=== PATIENT | male | born 1980 | race Caucasian/White ===

== ENCOUNTER 2016-03-24 15:29 | Emergency (ER) | payer SELFPAY ==
[~2016-03-24] VITALS: Ht 180.3 cm; Wt 79.4 kg
[2016-03-24 15:53] VITALS: BP 123/75
== END 2016-03-24 20:20 | disposition left against medical advice (07) ==
LOC: ER 15:33
DX: M79.651 Pain in right thigh (principal); Z53.21 Procedure and treatment not carried out due to patient leaving prior to being seen by health care provider
CPT/HCPCS: 93971

== ENCOUNTER 2016-03-26 14:42 | Inpatient (IN) | payer SELFPAY ==
[~2016-03-26] VITALS: Ht 180.3 cm; Wt 76.8 kg
[2016-03-26] MEDS ORDERED: VANCOMYCIN 1GM/250ML D5W 250 ML IV ONE ×2 (17:15→19:37)
[2016-03-26] MEDS ORDERED: cefTRIAXone 1GM/50ML D5W 50 ML IV ONE (17:15)
[2016-03-26 18:03] LABS: Basophils # (auto) 0 uL; Basophils % (auto) 0.3 % (0.0-2.0); Eosinophils # (auto) 0 uL; Hematocrit 42.6 % (41.0-53.0); Hemoglobin 14.4 g/dL (13.5-17.5); Lymphocytes # (auto) 1.3 uL; Lymphocytes % (auto) 7.1 % (10.0-50.0); Mean Corpuscular Hemoglobin 32.6 pg (28.0-32.0); Mean Corpuscular Hgb Conc. 33.9 g/dL (32.0-36.0); Mean Corpuscular Volume 96.3 fL (80.0-100.0); Mean Platelet Volume 8.6 fL (7.4-10.4); Monocytes % (auto) 5.9 % (0.0-12.0); Neutrophils # (auto) 15.4 uL; Neutrophils % (auto) 86.7 % (37.0-80.0); Platelet Count (auto) 280 10^3/uL (140-450); White Blood Cell 17.8 10^3/uL (4.4-10.8)
[2016-03-26 18:04] LABS: BUN/Creatinine Ratio 10.2; Calcium 8.6 mg/dL (8.5-10.1); Potassium 3.9 mmol/L (3.5-5.1)
[2016-03-26 18:07] LABS: Bilirubin, Total 0.8 mg/dL (0.2-1.0); Total Protein 7.6 g/dL (6.4-8.2)
[2016-03-26] MEDS ORDERED: SODIUM CHLORIDE 0.9% 1,000 ML IV SCH (18:09)
[2016-03-26] MEDS ORDERED: PROMETHAZINE HCL 25 MG/ML 1ML IV PRN (18:15)
[2016-03-26] MEDS ORDERED: HYDROcodone-ACET 5/325MG TAB PO PRN (18:15)
[2016-03-26] MEDS ORDERED: ACETAMINOPHEN 500 MG TAB PO PRN (18:15)
[2016-03-26] MEDS ORDERED: LORazepam 0.5 MG TAB PO PRN (18:15)
[2016-03-26] MEDS ORDERED: LACTULOSE 20Gm/30ML SOLN PO PRN (18:15)
[2016-03-26] MEDS ORDERED: CLINDAMYCIN 900MG IV 50 ML IV ONE (18:15)
[2016-03-26] MEDS ORDERED: MORPHINE SULF INJ 2 MG/ML SYRINGE 1ML IV PRN ×2 (18:15→18:45)
[2016-03-26] MEDS ORDERED: TEMAZEPAM 15 MG CAP PO PRN (18:15)
[2016-03-26] MEDS ORDERED: ENOXAPARIN SOD 40 MG/0.4 ML SYRINGE SC SCH (18:19)
[2016-03-26] MEDS ORDERED: NITROGLYCERIN 0.4 MG SL TAB SL PRN (18:45)
[2016-03-26 18:59] LABS: Prothrombin Time 12.3 sec (9.37-12.3)
[2016-03-26 19:06] LABS: INR 1.19 (0.9-1.15)
[2016-03-26] MEDS ORDERED: ACETAMINOPHEN 500 MG TAB PO ONE (19:30)
[2016-03-26 21:57] VITALS: BP 108/59
[2016-03-26 22:00] VITALS: BP 108/59
[2016-03-26] MEDS ORDERED: CLINDAMYCIN 600MG IV 50 ML IV SCH (22:00)
[2016-03-27] MEDS ORDERED: CLINDAMYCIN 600MG IV 50 ML IV SCH (02:00)
[2016-03-27] MEDS ORDERED: MORPHINE SULF INJ 2 MG/ML SYRINGE 1ML IV PRN (02:45)
[2016-03-27] MEDS ORDERED: LACTULOSE 20Gm/30ML SOLN PO PRN (02:45)
[2016-03-27] MEDS ORDERED: NITROGLYCERIN 0.4 MG SL TAB SL PRN (02:45)
[2016-03-27] MEDS ORDERED: PROMETHAZINE HCL 25 MG/ML 1ML IV PRN (02:45)
[2016-03-27] MEDS ORDERED: ACETAMINOPHEN 500 MG TAB PO PRN (02:45)
[2016-03-27] MEDS: SODIUM CHLORIDE 0.9% 1,000 ML IV SCH ×3 (02:53→22:37)
[2016-03-27 05:34] LABS: Basophils # (auto) 0 uL; Basophils % (auto) 0.2 % (0.0-2.0); Eosinophils # (auto) 0 uL; Eosinophils % (auto) 0.2 % (0.0-7.0); Hematocrit 40.7 % (41.0-53.0); Hemoglobin 13.8 g/dL (13.5-17.5); Lymphocytes # (auto) 1.3 uL; Lymphocytes % (auto) 6.8 % (10.0-50.0); Mean Corpuscular Hemoglobin 32.7 pg (28.0-32.0); Mean Corpuscular Hgb Conc. 33.8 g/dL (32.0-36.0); Mean Corpuscular Volume 96.5 fL (80.0-100.0); Mean Platelet Volume 8.3 fL (7.4-10.4); Monocytes # (auto) 1.6 uL; Monocytes % (auto) 8.3 % (0.0-12.0); Neutrophils # (auto) 15.9 uL; Neutrophils % (auto) 84.5 % (37.0-80.0); Platelet Count (auto) 280 10^3/uL (140-450); Red Cell Distribution Width 13.4 % (11.6-16.0); White Blood Cell 18.8 10^3/uL (4.4-10.8)
[2016-03-27 05:51] LABS: Albumin 2.7 g/dL (3.4-5.0); BUN/Creatinine Ratio 12.2; Bilirubin, Total 0.6 mg/dL (0.2-1.0); Calcium 8.5 mg/dL (8.5-10.1); Potassium 3.7 mmol/L (3.5-5.1); Total Protein 7.2 g/dL (6.4-8.2)
[2016-03-27 05:54] VITALS: BP 122/78
[2016-03-27 08:00] VITALS: BP 114/66
[2016-03-27] MEDS: MORPHINE SULF INJ 2 MG/ML SYRINGE 1ML IV PRN ×3 (08:38→17:57)
[2016-03-27] MEDS: cefTRIAXone 1GM/50ML D5W 50 ML IV SCH (08:39)
[2016-03-27] MEDS ORDERED: cefTRIAXone 1GM/50ML D5W 50 ML IV SCH (09:00)
[2016-03-27] MEDS: ENOXAPARIN SOD 40 MG/0.4 ML SYRINGE SC SCH (10:00)
[2016-03-27] MEDS: CLINDAMYCIN 600MG IV 50 ML IV SCH ×2 (10:07→17:57)
[2016-03-27] MEDS: HYDROcodone-ACET 5/325MG TAB PO PRN ×2 (10:11→19:37)
[2016-03-27 11:42] LABS: Urine RBC None Seen /hpf (0 - 3)
[2016-03-27 11:47] VITALS: BP 114/66
[2016-03-27 12:03] LABS: Urine Bilirubin Negative (Negative); Urine Blood Negative /uL (Negative); Urine Color Yellow (Yellow); Urine Glucose Normal (Normal); Urine Ketone Negative (Negative); Urine Nitrite Negative (Negative); Urine pH 7.5 (5.0-8.0)
[2016-03-27 13:00] VITALS: BP 105/49
[2016-03-27 17:00] VITALS: BP 121/74
[2016-03-27 22:00] VITALS: BP 107/59
[2016-03-28] MEDS: MORPHINE SULF INJ 2 MG/ML SYRINGE 1ML IV PRN ×5 (00:09→22:07)
[2016-03-28] MEDS: CLINDAMYCIN 600MG IV 50 ML IV SCH ×3 (01:29→17:40)
[2016-03-28] MEDS: HYDROcodone-ACET 5/325MG TAB PO PRN ×4 (02:36→23:13)
[2016-03-28 05:30] VITALS: BP 97/66
[2016-03-28] MEDS: cefTRIAXone 1GM/50ML D5W 50 ML IV SCH (08:27)
[2016-03-28] MEDS: ENOXAPARIN SOD 40 MG/0.4 ML SYRINGE SC SCH (08:53)
[2016-03-28 09:00] VITALS: BP 102/68
[2016-03-28 09:06] LABS: Basophils # (auto) 0 uL; Eosinophils # (auto) 0.1 uL; Eosinophils % (auto) 0.4 % (0.0-7.0); Hemoglobin 12.5 g/dL (13.5-17.5); Lymphocytes # (auto) 0.9 uL; Lymphocytes % (auto) 5.3 % (10.0-50.0); Mean Corpuscular Hemoglobin 31.9 pg (28.0-32.0); Mean Corpuscular Hgb Conc. 32.9 g/dL (32.0-36.0); Mean Corpuscular Volume 96.9 fL (80.0-100.0); Mean Platelet Volume 7.8 fL (7.4-10.4); Monocytes # (auto) 1.2 uL; Monocytes % (auto) 7.1 % (0.0-12.0); Neutrophils # (auto) 14.6 uL; Neutrophils % (auto) 87.2 % (37.0-80.0); Platelet Count (auto) 297 10^3/uL (140-450); Red Cell Distribution Width 13.4 % (11.6-16.0); White Blood Cell 16.8 10^3/uL (4.4-10.8)
[2016-03-28 09:54] LABS: BUN/Creatinine Ratio 9.1; Calcium 8.6 mg/dL (8.5-10.1); Magnesium 2.3 mg/dL (1.6-2.6); Potassium 3.6 mmol/L (3.5-5.1)
[2016-03-28] MEDS: SODIUM CHLORIDE 0.9% 1,000 ML IV SCH ×2 (10:36→19:49)
[2016-03-28 13:00] VITALS: BP 125/69
[2016-03-28 17:00] VITALS: BP 112/59
[2016-03-28 22:00] VITALS: BP 105/60
[2016-03-29] MEDS: CLINDAMYCIN 600MG IV 50 ML IV SCH ×3 (02:29→19:03)
[2016-03-29] MEDS: MORPHINE SULF INJ 2 MG/ML SYRINGE 1ML IV PRN ×5 (03:07→23:53)
[2016-03-29] MEDS: SODIUM CHLORIDE 0.9% 1,000 ML IV SCH ×2 (04:54→21:34)
[2016-03-29 05:00] VITALS: BP 107/61
[2016-03-29] MEDS: HYDROcodone-ACET 5/325MG TAB PO PRN ×2 (08:47→19:21)
[2016-03-29] MEDS: cefTRIAXone 1GM/50ML D5W 50 ML IV SCH (08:48)
[2016-03-29 09:00] VITALS: BP 115/69
[2016-03-29 09:06] LABS: Basophils # (auto) 0 uL; Basophils % (auto) 0.2 % (0.0-2.0); Eosinophils # (auto) 0.1 uL; Eosinophils % (auto) 0.8 % (0.0-7.0); Hemoglobin 12.5 g/dL (13.5-17.5); Lymphocytes % (auto) 5.7 % (10.0-50.0); Mean Corpuscular Volume 97.1 fL (80.0-100.0); Mean Platelet Volume 8.3 fL (7.4-10.4); Monocytes % (auto) 5.9 % (0.0-12.0); Neutrophils # (auto) 14.6 uL; Neutrophils % (auto) 87.4 % (37.0-80.0); Platelet Count (auto) 338 10^3/uL (140-450); Red Cell Distribution Width 13.5 % (11.6-16.0); White Blood Cell 16.7 10^3/uL (4.4-10.8)
[2016-03-29] MEDS: ENOXAPARIN SOD 40 MG/0.4 ML SYRINGE SC SCH (10:00)
[2016-03-29 13:00] VITALS: BP 119/72
[2016-03-29 17:00] VITALS: BP 115/58
[2016-03-29 20:00] VITALS: BP 105/59
[2016-03-29 22:00] VITALS: BP 105/59
[2016-03-30] MEDS: SODIUM CHLORIDE 0.9% 1,000 ML IV SCH ×3 (00:45→21:56)
[2016-03-30] MEDS: CLINDAMYCIN 600MG IV 50 ML IV SCH ×3 (02:16→17:33)
[2016-03-30 05:00] VITALS: BP 103/65
[2016-03-30] MEDS: MORPHINE SULF INJ 2 MG/ML SYRINGE 1ML IV PRN ×4 (05:09→21:56)
[2016-03-30] MEDS: HYDROcodone-ACET 5/325MG TAB PO PRN ×2 (07:46→19:11)
[2016-03-30 08:32] LABS: Basophils # (auto) 0 uL; Basophils % (auto) 0.2 % (0.0-2.0); Eosinophils # (auto) 0.2 uL; Eosinophils % (auto) 1.6 % (0.0-7.0); Hematocrit 39.2 % (41.0-53.0); Hemoglobin 12.7 g/dL (13.5-17.5); Lymphocytes # (auto) 1.1 uL; Lymphocytes % (auto) 7.8 % (10.0-50.0); Mean Corpuscular Hemoglobin 31.5 pg (28.0-32.0); Mean Corpuscular Hgb Conc. 32.4 g/dL (32.0-36.0); Mean Corpuscular Volume 97.4 fL (80.0-100.0); Monocytes % (auto) 7.1 % (0.0-12.0); Neutrophils # (auto) 11.6 uL; Neutrophils % (auto) 83.3 % (37.0-80.0); Platelet Count (auto) 399 10^3/uL (140-450); Red Cell Distribution Width 13.8 % (11.6-16.0); White Blood Cell 13.9 10^3/uL (4.4-10.8)
[2016-03-30 08:44] LABS: BUN/Creatinine Ratio 12.6; Calcium 8.4 mg/dL (8.5-10.1); Potassium 3.6 mmol/L (3.5-5.1)
[2016-03-30] MEDS: cefTRIAXone 1GM/50ML D5W 50 ML IV SCH (09:05)
[2016-03-30] MEDS: ENOXAPARIN SOD 40 MG/0.4 ML SYRINGE SC SCH (09:37)
[2016-03-30 09:53] VITALS: BP 112/62
[2016-03-30] MEDS ORDERED: GADOPENTETATE DIMEGLUMINE (10MMOL/20 ML) VIAL IV ONE (11:39)
[2016-03-30 13:42] VITALS: BP 102/68
[2016-03-30 21:54] VITALS: BP 110/70
[2016-03-30] MEDS: TEMAZEPAM 15 MG CAP PO PRN (21:56)
[2016-03-31] MEDS: HYDROcodone-ACET 5/325MG TAB PO PRN ×3 (01:21→20:11)
[2016-03-31] MEDS: SODIUM CHLORIDE 0.9% 1,000 ML IV SCH ×2 (01:21→13:16)
[2016-03-31] MEDS: CLINDAMYCIN 600MG IV 50 ML IV SCH ×3 (01:21→17:43)
[2016-03-31 05:00] VITALS: BP 106/65
[2016-03-31] MEDS: MORPHINE SULF INJ 2 MG/ML SYRINGE 1ML IV PRN ×3 (07:30→18:41)
[2016-03-31 08:00] VITALS: BP 111/55
[2016-03-31] MEDS: ENOXAPARIN SOD 40 MG/0.4 ML SYRINGE SC SCH (10:00)
[2016-03-31] MEDS: cefTRIAXone 1GM/50ML D5W 50 ML IV SCH (10:21)
[2016-03-31 12:00] VITALS: BP 112/64
[2016-03-31 12:28] LABS: Basophils # (auto) 0.1 uL; Basophils % (auto) 0.5 % (0.0-2.0); Eosinophils # (auto) 0.4 uL; Eosinophils % (auto) 3.1 % (0.0-7.0); Hematocrit 39.7 % (41.0-53.0); Hemoglobin 12.6 g/dL (13.5-17.5); Lymphocytes # (auto) 1.4 uL; Lymphocytes % (auto) 12.6 % (10.0-50.0); Mean Corpuscular Hemoglobin 31.4 pg (28.0-32.0); Mean Corpuscular Hgb Conc. 31.9 g/dL (32.0-36.0); Mean Corpuscular Volume 98.5 fL (80.0-100.0); Mean Platelet Volume 8.1 fL (7.4-10.4); Monocytes # (auto) 0.7 uL; Monocytes % (auto) 6.2 % (0.0-12.0); Neutrophils # (auto) 8.9 uL; Neutrophils % (auto) 77.6 % (37.0-80.0); Platelet Count (auto) 512 10^3/uL (140-450); White Blood Cell 11.4 10^3/uL (4.4-10.8)
[2016-03-31] MEDS: LORazepam 0.5 MG TAB PO PRN (13:55)
[2016-03-31 17:00] VITALS: BP 117/72
[2016-03-31 20:00] VITALS: BP 100/61
[2016-03-31] MEDS: TEMAZEPAM 15 MG CAP PO PRN (21:21)
[2016-03-31 22:00] VITALS: BP 100/61
[2016-04-01] MEDS: MORPHINE SULF INJ 2 MG/ML SYRINGE 1ML IV PRN ×5 (01:07→20:18)
[2016-04-01] MEDS: CLINDAMYCIN 600MG IV 50 ML IV SCH ×3 (02:05→17:16)
[2016-04-01 05:00] VITALS: BP 119/67
[2016-04-01] MEDS: LORazepam 0.5 MG TAB PO PRN (05:22)
[2016-04-01 09:00] VITALS: BP_SYST 119; BP_SYST 132; BP_DIAS 65; BP_DIAS 69
[2016-04-01] MEDS: cefTRIAXone 1GM/50ML D5W 50 ML IV SCH (09:29)
[2016-04-01] MEDS: ENOXAPARIN SOD 40 MG/0.4 ML SYRINGE SC SCH (09:30)
[2016-04-01] MEDS: SODIUM CHLORIDE 0.9% 1,000 ML IV SCH ×2 (10:20→19:30)
[2016-04-01 13:00] VITALS: BP 99/58
[2016-04-01 17:00] VITALS: BP 124/74
[2016-04-01] MEDS: HYDROcodone-ACET 5/325MG TAB PO PRN (17:15)
[2016-04-01] MEDS: TEMAZEPAM 15 MG CAP PO PRN (21:25)
[2016-04-01 22:03] VITALS: BP 114/65
[2016-04-02] MEDS: CLINDAMYCIN 600MG IV 50 ML IV SCH ×3 (01:56→18:04)
[2016-04-02] MEDS: MORPHINE SULF INJ 2 MG/ML SYRINGE 1ML IV PRN ×5 (02:31→20:20)
[2016-04-02] MEDS: HYDROcodone-ACET 5/325MG TAB PO PRN ×3 (04:36→22:20)
[2016-04-02 05:03] VITALS: BP 106/55
[2016-04-02 06:22] LABS: Basophils # (auto) 0 uL; Basophils % (auto) 0.4 % (0.0-2.0); Eosinophils # (auto) 0.4 uL; Eosinophils % (auto) 3.8 % (0.0-7.0); Hematocrit 39.2 % (41.0-53.0); Hemoglobin 12.8 g/dL (13.5-17.5); Lymphocytes # (auto) 1.8 uL; Lymphocytes % (auto) 15.8 % (10.0-50.0); Mean Corpuscular Hgb Conc. 32.5 g/dL (32.0-36.0); Mean Corpuscular Volume 98.3 fL (80.0-100.0); Monocytes # (auto) 0.9 uL; Monocytes % (auto) 7.7 % (0.0-12.0); Neutrophils # (auto) 8.2 uL; Neutrophils % (auto) 72.3 % (37.0-80.0); Platelet Count (auto) 631 10^3/uL (140-450); Red Cell Distribution Width 13.6 % (11.6-16.0); White Blood Cell 11.4 10^3/uL (4.4-10.8)
[2016-04-02] MEDS: cefTRIAXone 1GM/50ML D5W 50 ML IV SCH (08:41)
[2016-04-02] MEDS: ENOXAPARIN SOD 40 MG/0.4 ML SYRINGE SC SCH (08:41)
[2016-04-02 09:00] VITALS: BP 106/60
[2016-04-02] MEDS ORDERED: LIDOCAINE 2%HCL (LOCAL ANESTH.) INJ 20ML MDV ONE (09:15)
[2016-04-02] MEDS ORDERED: fentaNYL CITRATE 100 MCG/2 ML VL ONE (09:54)
[2016-04-02] MEDS ORDERED: MIDAZOLAM HCL 1MG/1ML-2 ML VIAL ONE (09:54)
[2016-04-02 17:00] VITALS: BP 120/58
[2016-04-02] MEDS: TEMAZEPAM 15 MG CAP PO PRN (20:20)
[2016-04-02 21:37] VITALS: BP 110/69
[2016-04-02] MEDS: SODIUM CHLORIDE 0.9% 1,000 ML IV SCH (22:15)
[2016-04-03] MEDS: CLINDAMYCIN 600MG IV 50 ML IV SCH ×2 (02:01→10:00)
[2016-04-03] MEDS: MORPHINE SULF INJ 2 MG/ML SYRINGE 1ML IV PRN ×2 (04:45→10:42)
[2016-04-03 05:42] VITALS: BP 103/56
[2016-04-03] MEDS: HYDROcodone-ACET 5/325MG TAB PO PRN (08:29)
[2016-04-03 08:49] LABS: BUN/Creatinine Ratio 17.9; Calcium 9.2 mg/dL (8.5-10.1); Potassium 4.4 mmol/L (3.5-5.1)
[2016-04-03 09:00] VITALS: BP 119/66
[2016-04-03] MEDS: cefTRIAXone 1GM/50ML D5W 50 ML IV SCH ×2 (09:00→09:07)
[2016-04-03 10:23] LABS: Basophils # (auto) 0.1 uL; Basophils % (auto) 0.6 % (0.0-2.0); Eosinophils # (auto) 0.4 uL; Eosinophils % (auto) 3.4 % (0.0-7.0); Hematocrit 41.2 % (41.0-53.0); Hemoglobin 13.3 g/dL (13.5-17.5); Lymphocytes # (auto) 2.3 uL; Lymphocytes % (auto) 22.1 % (10.0-50.0); Mean Corpuscular Hemoglobin 31.5 pg (28.0-32.0); Mean Corpuscular Hgb Conc. 32.3 g/dL (32.0-36.0); Mean Corpuscular Volume 97.4 fL (80.0-100.0); Mean Platelet Volume 8.1 fL (7.4-10.4); Monocytes # (auto) 0.4 uL; Monocytes % (auto) 3.9 % (0.0-12.0); Neutrophils # (auto) 7.2 uL; Platelet Count (auto) 727 10^3/uL (140-450); Red Cell Distribution Width 13.8 % (11.6-16.0); White Blood Cell 10.3 10^3/uL (4.4-10.8)
[2016-04-03] MEDS: ENOXAPARIN SOD 40 MG/0.4 ML SYRINGE SC SCH (10:42)
[2016-04-03] MEDS ORDERED: CEPH-37 PO (11:29)
== END 2016-04-03 12:35 | disposition home or self-care (01) | DRG 872 ==
LOC: ER 14:45 → TELE-WESTW 14:46 → TELE 14:46 → UNDOADMIN 14:46 → ER 16:47 → WEST WING 03-30 08:12
PROVIDERS: ADMIT Internal Medicine; ATTEND Internal Medicine
PROC: 0Y9C30Z Drainage of Right Upper Leg with Drainage Device, Percutaneous Approach (ICD-10-PCS; principal; 2016-04-02)
DX: A41.9 Sepsis, unspecified organism (principal); L03.115 Cellulitis of right lower limb; F17.210 Nicotine dependence, cigarettes, uncomplicated; Z98.890 Other specified postprocedural states
CPT/HCPCS: 36415; 73700; 73718; 76881; 76942; 80048; 80053; 80061; 81001; 83605; 83735; 85025; 85610; 85652; 85730; 87040; 87070; 87077; 87186; 96365; 96367; 96372; J0696; J2250; J3490

== ENCOUNTER 2016-10-30 17:11 | Emergency (ER) | payer MEDICAID ==
[~2016-10-30] VITALS: Ht 180.3 cm; Wt 67.6 kg
[~2016-10-30 17:11] MED LIST: CEPH-37 PO
[2016-10-30] MEDS ORDERED: cefTRIAXone SOD 1,000 MG VL IM ONE (19:15)
[2016-10-30 19:34] VITALS: BP 129/87
[2016-10-30] MEDS ORDERED: BACITRACIN TOP OINT 1 UD PKG TOP ONE (19:45)
== END 2016-10-30 19:54 | disposition home or self-care (01) ==
LOC: ER 17:13
DX: L03.115 Cellulitis of right lower limb (principal); F17.210 Nicotine dependence, cigarettes, uncomplicated
CPT/HCPCS: 96372; 99283; J0696

== ENCOUNTER 2017-04-10 12:50 | Emergency (ER) | payer MEDICAID ==
[~2017-04-10] VITALS: Ht 180.3 cm; Wt 71.7 kg
[2017-04-10 15:28] VITALS: BP 102/71
== END 2017-04-10 16:17 | disposition home or self-care (01) ==
LOC: ER 12:50
DX: S00.06XA Insect bite (nonvenomous) of scalp, initial encounter (principal); F17.210 Nicotine dependence, cigarettes, uncomplicated; W57.XXXA Bitten or stung by nonvenomous insect and other nonvenomous arthropods, initial encounter; Y93.89 Activity, other specified; Y99.8 Other external cause status; Y92.89 Other specified places as the place of occurrence of the external cause

== ENCOUNTER 2019-10-31 09:04 | Emergency (ER) | payer MEDICAID ==
[~2019-10-31] VITALS: Ht 180.3 cm; Wt 77.1 kg
[2019-10-31 09:18] VITALS: BP 123/82
[2019-10-31] MEDS ORDERED: CLINDAMYCIN 600MG IV 50 ML IV ONE (09:30)
[2019-10-31] MEDS ORDERED: KETOROLAC TROMETH 30 MG/ML 1ML VIAL IV ONE (09:30)
== END 2019-10-31 09:51 | disposition home or self-care (01) ==
LOC: ER 09:04
DX: L03.011 Cellulitis of right finger (principal)